=== PATIENT | female | born 1955 | race Caucasian/White ===

== ENCOUNTER 2023-07-30 14:52 | Emergency (ER) | payer OTHER, SELFPAY ==
[2023-07-30 14:58] VITALS: BP 137/69
[2023-07-30 15:01] VITALS: BMI 32.0
[2023-07-30 15:30] LABS: COVID-19 Antigen Negative (Negative)
--- NOTE | 2023-07-30 16:35 | ED.GENMED ---
History of Present Illness
General
Chief Complaint: Cold/Flu/URI Symptoms
Source: patient
Exam Limitations: none
Time Seen by Provider: 07/30/23 16:03
Nursing documentation reviewed up to this point in time: agreed with
Travel History
Have you had any contact with someone who has COVID-19?: No
Do you have any symptoms of coronavirus? Fever > 100 degrees, chills, cough, shortness of breath, sore throat, loss of taste or smell, muscle aches, or headache?: No
History of Present Illness
History of Present Illness:
68-year-old female with history of hypertension presents to the emergency room for evaluation of flulike illness. Patient was recently in the [place] for her son's wedding last week. She arrived home on Thursday. She says that that
evening she noticed she had a scratchy throat and then woke up on Thursday with bodyaches, fevers, cough. She says she has a wedding on Thursday and she decided to come to the emergency room to be checked for flu and COVID. She denies any
shortness of breath or chest pain. She has not had any GI symptoms. She denies any other complaints. She says that much of the wedding libertarian from her son's wedding is sick with similar symptoms.
Past History
Past History
ED Past Medical History: HTN and Other (Blepharitis)
ED Past Surgical History: Other (Mohs surgery)
Social History
Tobacco: Non-smoker
Alcohol: None
Drug: None
Personal:
Living: with family
Review of Systems
Review of Systems
All Other Systems: ROS reviewed and negative except as documented in HPI and ROS
Constitutional: Reports fever, fatigue and chills
EENT: Reports sore throat and runny nose
Respiratory: Reports cough; Denies trouble breathing
Cardiac: Denies chest pain
ABD/GI: Denies abdominal pain, nausea, vomiting or diarrhea
Musculoskeletal: Reports muscle pain (Myalgias)
Phy Exam
Physical Exam
Physical Exam:
General: Awake, alert, oriented x3; no acute distress
Head: Normocephalic, atraumatic
Eyes: Conjunctiva normal
Throat: Airway intact, handling secretions
Neck: Trachea midline
Lungs: Clear to auscultation bilaterally, no wheezing, rales, rhonchi
Heart: Regular rate and rhythm, no murmurs, gallops, or rubs
Neuro: Cranial nerves grossly intact, speech fluid
Extremities: Moves all extremities with no gross deficits, no deformities
Scores
Heart Failure Risk
Heart Failure Risk Score: Not Applicable
Heart Score for Chest Pain Patients
STEMI patient?: Not applicable
Withdrawal Assessment of Alcohol
Withdrawal Assessment Completed?: Not applicable
Course
Orders/Labs/Results
Orders:
Orders
07/30/23 15:08
COVID-19 Antigen Urgent
Source: Nasal Swab
Influenza A+B Rapid Molecular Urgent
NADIA Source: Nasal Swab
Specimen Description:
Vital Signs
Initial and Last Documented VS:
Initial Vital Signs
Temp Pulse Resp BP Pulse Ox
37.7 C 96 19 137/69 96
07/30/23 14:58 07/30/23 14:58 07/30/23 14:58 07/30/23 14:58 07/30/23 14:58
Last Documented Vital Signs
Temp Pulse Resp BP Pulse Ox
37.7 C 96 19 137/69 96
07/30/23 14:58 07/30/23 14:58 07/30/23 14:58 07/30/23 14:58 07/30/23 14:58
MDM/Problems Addressed
Differential Diagnosis Includes:
Viral syndrome�flu, COVID, rhinovirus, adenovirus, etc; allergies also consideration
MDM/Problems Addressed:
68-year-old female presents for evaluation of flulike illness. Vital signs normal. Exam benign. Viral swabs sent and patient is positive for influenza. Patient did have her flu vaccine this year. Outside window benefit for Tamiflu. Advised
symptomatic treatment/supportive care with [id number] medications. We spoke about infection control measures including handwashing and covering mouth with coughing/sneezing. Spoke about return precautions all questions answered.
*Pulse Oximetry
Patient hypoxic: no
*Critical Care Note
Total Time (30-74mins, 75-104mins- exclusive of procedures): Not Applicable
Data Reviewed
Source: patient
ED Attending Note
-
Portions of this chart may have been created with voice recognition software.� Occasional wrong word or��sound alike� substitutions may have occurred due to the inherent limitations of voice recognition software.
Discharge Plan
Departure
Patient Disposition: Home (Routine Discharge)
Date of Disposition: 07/30/23
Time of Disposition: 16:11
Patient with high blood pressure during this ER visit?: No
Discharge Problem:
Influenza
Instructions: Viral Syndrome (DC)
Prescriptions:
No Action
amlodipine 10 mg tablet
10 mg PO DAILY
lisinopril-hydrochlorothiazide 20-25 mg Tablet
1 tab PO DAILY
Activity Restrictions/Additional Instructions:
Thank you for visiting the Emergency Department at [facility].
1. Please schedule a follow up appointment as directed. Call first thing tomorrow morning to make an appointment.
2. If indicated, please take your medications as instructed and indicated on discharge paperwork.
3. If any of your symptoms do not improve, or persist, or become more severe within 6-12 hours, please return to the emergency department for further care.
4. Please return to the emergency department if you develop a headache, neck pain/stiffness, fever greater than 100.4F, chest pain, shortness of breath, persistent nausea, vomiting, slurred speech, difficulty walking, numbness/tingling, weakness,
signs of infection or any other symptoms that are worrisome to you.
Please call [phone] if you have any questions.
Interventions
Interventions:
*Risk Screen - Suicide Last Done: 07/30/23 14:59
*General Assessment Last Done: 07/30/23 16:20
*Neglect/Abuse Screening Last Done: 07/30/23 15:01
ED- Fall Risk Assessment Last Done: 07/30/23 14:59
*ED COVID-19 Vaccine History Last Done: 07/30/23 16:20
*Nursing Disposition Last Done: 07/30/23 16:26
ED- Pulmonary Assessment Last Done: 07/30/23 16:20
Discharge Date and Time
Discharge Date/Time: 07/30/23 16:27
Print Language: PARAGUAYAN
== END 2023-07-30 16:27 | disposition home or self-care (01) ==
LOC: EMR 14:52
PROVIDERS: Emergency Medicine; EMERGENCY PHYSICIAN Emergency Medicine; FAMILY PHYSICIAN Internal Medicine
DX: J11.1 Influenza due to unidentified influenza virus with other respiratory manifestations (principal); I10 Essential (primary) hypertension
CPT/HCPCS: 99283; 87502; 87811

== ENCOUNTER → 2024-06-21 14:40 | Outpatient (REF) | payer BC, SELFPAY | LOC: HWRAD 14:40 | PROVIDERS: ATTENDING PHYSICIAN Obstetrics & Gynecology Gynecology; FAMILY PHYSICIAN Internal Medicine | DX: Z78.0 Asymptomatic menopausal state (principal) | CPT/HCPCS: 77080 ==

== ENCOUNTER → 2024-06-28 19:35 | Outpatient (REF) | payer BC, SELFPAY | LOC: WDC 19:35 | PROVIDERS: ATTENDING PHYSICIAN Obstetrics & Gynecology Gynecology; FAMILY PHYSICIAN Nurse Practitioner Family | DX: Z12.31 Encounter for screening mammogram for malignant neoplasm of breast (principal) | CPT/HCPCS: 77063; 77067 ==